=== PATIENT | male | born 1970 | race Caucasian/White ===

== ENCOUNTER 2019-08-26 16:11 | Observation (INO) ==
--- NOTE | 2019-08-26 16:46 | Emergency Department Note ---
General Adult HPI - General Chief complaint: Blood Sugar Problem Stated complaint: low blood glucose levels Time Seen by Provider: 08/26/19 16:23 Source: patient Mode of arrival: ambulatory Limitations: no limitations - History of Present Illness HPI Narrative: Is a diabetic brought in for hyperglycemia. His blood sugar was 28 most recently. EMS did give him D50 and he responded. He is now awake and alert. He was off all his medications between last March and this past Monday. He saw physician and was restarted on his insulin and other medications in the last 24 hours he has had 4 episodes of blood sugars in the 20s. Also has a noticed a little swelling at times in his legs. He has a pacemaker but no history of coronary disease or heart failure. No history of liver disease. - Related Data Home Medications Medication Instructions Recorded Confirmed Atorvastatin [Lipitor] 10 mg PO HS 08/26/19 08/26/19 Cyanocobalamin (Vitamin B-12) 1,000 mcg IJ MONTHLY 08/26/19 08/26/19 [B-12 Compliance] Furosemide [Lasix] 20 mg PO DAILY 08/26/19 08/26/19 Glimepiride [Amaryl] 3 mg PO ONCE 08/26/19 08/26/19 Insulin Glargine,Hum.rec.anlog 12 unit SQ DAILY 08/26/19 08/26/19 [Lantus Solostar] Linagliptin [Tradjenta] 5 mg PO DAILY 08/26/19 08/26/19 Lisinopril/Hydrochlorothiazide 1 tab PO DAILY 08/26/19 08/26/19 [Lisinopril-Hctz 10-12.5 mg Tab] Metoprolol Succinate [Kapspargo 25 mg PO DAILY 08/26/19 08/26/19 Sprinkle] Rivaroxaban [Xarelto] 20 mg PO DAILY 08/26/19 08/26/19 amLODIPine [Norvasc] 10 mg PO DAILY 08/26/19 08/26/19 metFORMIN [Glucophage] 1,000 mg PO BIDCC 08/26/19 08/26/19 Allergies Allergy/AdvReac Type Severity Reaction Status Date / Time No Known Drug Allergies Allergy Unverified 08/26/19 16:17 Review of Systems All systems ED: reviewed and negative except as stated. Past Medical History - Past Medical History Medical history: Reports: DM Surgical history ED: Reports: pacemaker/AICD - Social History smoking status: Smokeless tobacco Physical Exam Limitations: no limitations General appearance: alert Head: atraumatic Eye: Present: normal appearance ENT: Present: normal exam Neck: Present: normal inspection Chest: Present: normal inspection Respiratory: Present: normal lung sounds bilaterally Cardiovascular: Present: regular rate, normal rhythm, normal heart sounds Abdominal: Present: soft. Absent: distention, tenderness Extremities: Present: pedal edema, pretibial edema Neurological: Present: alert Psychiatric: Present: normal affect Skin: Present: warm, dry Course Vital Signs Temperature 97.5 F 08/26/19 16:12 Pulse Rate 87 08/26/19 16:12 Respiratory Rate 18 08/26/19 16:12 Blood Pressure 165/107 08/26/19 16:12 Pulse Oximetry (%) 99 08/26/19 16:12 Temperature 97.5 F 08/26/19 16:12 Pulse Rate 93 H 08/26/19 20:16 Respiratory Rate 18 08/26/19 16:12 Blood Pressure 164/106 08/26/19 20:16 Pulse Oximetry (%) 95 08/26/19 20:16 Medical Decision Making - [facility] Narrative Medical decision making narrative: We have had the patient ER for over 4 hours and he is eaten multiple times as well as gotten D10 W. Despite that his blood sugar is not gone over 50-55 since he has been here. I discussed the case with Dr. Frazier and he will be admitted observation to the hospital. - Lab Data Lab results reviewed: Yes I reviewed the patient's lab results. Result diagrams: 08/26/19 16:39 08/26/19 16:39 Lab Results 08/26/19 08/26/19 Range/Units 16:39 16:39 WBC 12.0 H (4.50-11.00) K/mcL RBC 4.71 (4.63-6.08) M/mcL Hgb 12.5 L (13.7-17.5) g/dL Hct 40.5 (40.1-51.0) % MCV 86.0 (80.0-100.0) fL MCH 26.5 (26.0-34.0) pg MCHC 30.9 L (31.0-36.0) g/dL RDW 14.5 (11.5-14.5) % Plt Count 350 (140-440) K/mcL MPV 9.4 (7.4-10.4) fL Gran % 78.0 (38.0-78.0) % Lymph % (Auto) 15.0 L (15.5-49.0) % Island % (Auto) 5.5 (1.0-12.0) % Eos % (Auto) 0.7 (0.0-7.0) % Baso % (Auto) 0.8 (0.0-2.0) % Gran # 9.34 H (1.80-8.00) K/mcL Lymph # (Auto) 1.79 (1.50-4.80) K/mcL Island # (Auto) 0.66 (0.10-0.90) K/mcL Eos # (Auto) 0.08 (0.00-0.70) K/mcL Baso # (Auto) 0.10 (0.00-0.30) K/mcL Sodium 139 (133-145) mmol/L Potassium 4.3 (3.3-5.1) mmol/L Chloride 105 (96-108) mmol/L Carbon Dioxide 21 L (22-30) mmol/L Anion Gap 13.0 (8-16) BUN 24 H (6-20) mg/dl Creatinine 1.6 H (0.7-1.2) mg/dl GFR Calculation 51 Glucose 35 L* (70-105) mg/dL Hemoglobin A1c 7.9 H (4.0-6.0) % HGB Estim Average Glucose 180 mg/dL Calcium 8.6 (8.6-10.4) mg/dl Total Bilirubin 0.2 (0.0-1.0) mg/dL AST 43 H (0-37) U/l ALT 34 (0-40) U/l Alkaline Phosphatase 94 (39-117) U/L Total Protein 6.6 (5.9-8.4) gm/dL Albumin 2.9 L (3.2-5.2) gm/dL Globulin 3.7 (2.2-3.7) gm/dL Albumin/Globulin Ratio 0.8 L (1.0-2.3) Beta-Hydroxybutyrate 0.08 (< 0.27) mmol/L Disposition Pt seen by [facility] only: No Clinical Impression: Hypoglycemia associated with diabetes Disposition: Xfer As Outpt/Obs ([facility]) Condition: Good Referrals: Issac Squries ARNP [Primary Care Provider] - Time of Disposition: 21:21
[2019-08-26 17:07] LABS: Basophils % (Auto) 0.8 % (0.0-2.0); Eosinophils # (Auto) 0.08 K/mcL (0.00-0.70); Eosinophils % (Auto) 0.7 % (0.0-7.0); Hematocrit 40.5 % (40.1-51.0); Hemoglobin 12.5 g/dL (13.7-17.5); Lymphocytes # (Auto) 1.79 K/mcL (1.50-4.80); Mean Corpuscular HGB Conc 30.9 g/dL (31.0-36.0); Mean Platelet Volume 9.4 fL (7.4-10.4); Monocytes # (Auto) 0.66 K/mcL (0.10-0.90); Monocytes % (Auto) 5.5 % (1.0-12.0); Platelet Count 350 K/mcL (140-440); RBC 4.71 M/mcL (4.63-6.08); Red Cell Distribution Width 14.5 % (11.5-14.5)
[2019-08-26 17:30] LABS: Estimated Average Glucose(eAG) 180 mg/dL; Hemoglobin A1C 7.9 % HGB (4.0-6.0)
[2019-08-26 17:34] LABS: ALT/SGPT 34 U/l (0-40); AST/SGOT 43 U/l (0-37); Albumin 2.9 gm/dL (3.2-5.2); Albumin/Globulin Ratio 0.8 (1.0-2.3); Alkaline Phosphatase 94 U/L (39-117); Beta Hydroxybutyrate 0.08 mmol/L (< 0.27); Bilirubin,Total 0.2 mg/dL (0.0-1.0); Blood Urea Nitrogen 24 mg/dl (6-20); Calcium 8.6 mg/dl (8.6-10.4); Carbon Dioxide 21 mmol/L (22-30); Chloride 105 mmol/L (96-108); Globulin 3.7 gm/dL (2.2-3.7); Glomerular Filtration Rate 51
[2019-08-26 18:20] LABS: Glucose 35 mg/dL (70-105)
[2019-08-26] MEDS ORDERED: DEXTROSE 10 % IN WATER 1,000 ML IV ONE ×2 (18:53→23:53)
--- NOTE | 2019-08-26 21:24 | Internal Med History&Physical ---
Medical - H&P: [facility] Patient information: Note initiated : 08/26/19 at 9:23 pm Service Date, if different from initiated Date: [] Patient: Ruslan Escobar a 49 y/o M admitted on for low blood glucose levels. Chief Complaint: [] Chief complaint: low BGS History of present illness: Mr. Escobar is a 49 year old M with history of poorly controlled diabetes/ CKD stage III . He stopped taking his medication following recent move to [place] and inability to receive refills. He has not had his regular antidiabetic since March and resumed recently after he saw his primary care physician. He was restarted on Lantus 12 units/metformin/glimepiride/linagliptin and Victoza. Following couple of days reinitiation yesterday patient became very confused lethargic diaphoretic and was found with low blood sugars. EMS was summoned after experiencing multiple episodes of hypoglycemia. Patient was managed in the ER with D50 infusion followed by D10 , however blood sugar remained in mid 30s. Patient also had a diet in the ER. Due to persistent hypoglycemia hospitalist service was consulted for admission and management. Patient's last dose of medication was this morning. Patient work-up was consistent with hypoglycemia/creatinine 1.6. Baseline creatinine not available however patient endorsed to chronic disease. He is hypertensive with systolics around 160s. Denies chest pain, vision changes, lightheadedness dizziness but endorses to confusion, diaphoresis and lethargy. Denies fever chills, diarrhea Review of systems 10 point review systems performed and negative except one discussed above Medical - H&P: PMH Medical history: DM type II Hypertension Atrial fibrillation Anticoagulation for CVA prophylaxis Pacemaker Pertinent family history: Nonrelevant Social history: and lives with Occasional alcohol No smoking Medical - H&P: Meds Home Medications Medication Instructions Recorded Confirmed Type Atorvastatin [Lipitor] 10 mg PO HS 08/26/19 08/26/19 History Cyanocobalamin (Vitamin B-12) 1,000 mcg IJ MONTHLY 08/26/19 08/26/19 History [B-12 Compliance] Furosemide [Lasix] 20 mg PO DAILY 08/26/19 08/26/19 History Glimepiride [Amaryl] 3 mg PO ONCE 08/26/19 08/26/19 History Insulin Glargine,Hum.rec.anlog 12 unit SQ DAILY 08/26/19 08/26/19 History [Lantus Solostar] Linagliptin [Tradjenta] 5 mg PO DAILY 08/26/19 08/26/19 History Lisinopril/Hydrochlorothiazide 1 tab PO DAILY 08/26/19 08/26/19 History [Lisinopril-Hctz 10-12.5 mg Tab] Metoprolol Succinate [Kapspargo 25 mg PO DAILY 08/26/19 08/26/19 History Sprinkle] Rivaroxaban [Xarelto] 20 mg PO DAILY 08/26/19 08/26/19 History amLODIPine [Norvasc] 10 mg PO DAILY 08/26/19 08/26/19 History metFORMIN [Glucophage] 1,000 mg PO BIDCC 08/26/19 08/26/19 History Allergies Allergy/AdvReac Type Severity Reaction Status Date / Time No Known Drug Allergies Allergy Unverified 08/26/19 16:17 Medical - H&P: Exam - Constitutional Vitals: Temp Pulse Resp BP Pulse Ox 97.5 F 93 H 18 164/106 95 08/26/19 16:12 08/26/19 20:16 08/26/19 16:12 08/26/19 20:16 08/26/19 20:16 General appearance: average body habitus, no acute distress Exam: Alert and respond to commands Head normocephalic Oral cavity dry No ear nose discharge Eye movement symmetrical Neck lymphadenopathy S1-S2 irregular Diminished breath sounds bases, pacemaker left anterior chest Lower extremity no cyanosis clubbing no joint swelling Skin no suspicious lesion Psych alert cooperative Neuro nonfocal Medical - H&P: Reslt - Labs CBC & Chem 7: 08/27/19 05:00 08/27/19 05:00 Labs: Short CBC 08/26/19 Range/Units 16:39 WBC 12.0 H (4.50-11.00) K/mcL Hgb 12.5 L (13.7-17.5) g/dL Hct 40.5 (40.1-51.0) % Plt Count 350 (140-440) K/mcL BMP 08/26/19 16:39 Sodium 139 Potassium 4.3 Chloride 105 Carbon Dioxide 21 L BUN 24 H Creatinine 1.6 H Glucose 35 L* Calcium 8.6 Liver Function 01/20/20 Range/Units 16:39 Total Bilirubin 0.2 (0.0-1.0) mg/dL AST 43 H (0-37) U/l ALT 34 (0-40) U/l Alkaline Phosphatase 94 (39-117) U/L Albumin 2.9 L (3.2-5.2) gm/dL Medical - H&P: A/P (1) Hypoglycemia associated with diabetes Current visit: Yes Status: Acute * Acute hypoglycemia secondary to over medications. Continue D5 drip/D50 as needed/glucagon. Hold anti-diabetics * Acute on chronic kidney disease. Unclear baseline. Continue monitoring. Crystalloids. Avoid nephrotoxins * History of hypertension restart home medications including amlodipine/GLORIA inhibitor * History of atrial fibrillation-rate controlled * Anticoagulation continue Xarelto * Hyperlipidemia continue statin * Prophylaxis on Xarelto * Full code Plan * Observation admit * D10 drip/ D50 as needed * Hold antidiabetics * Restart home medications * Continue close monitoring.
[2019-08-26] MEDS ORDERED: DEXTROSE 5%-1/2NS W/10MEQ KCL 1,000 ML IV SCH ×2 (21:30→22:46)
[2019-08-26] MEDS ORDERED: POLYETHYLENE GLYCOL 3350 17 GM PACKET PO PRN (22:46)
[2019-08-26] MEDS ORDERED: MAGNESIUM SULFATE 2 GM/50 ML BAG IV PRN (22:46)
[2019-08-26] MEDS ORDERED: ONDANSETRON 4 MG/2 ML VIAL IV PRN (22:46)
[2019-08-26] MEDS ORDERED: POTASSIUM CHLORIDE 20 MEQ PACKET PO PRN (22:46)
[2019-08-26] MEDS ORDERED: ACETAMINOPHEN 650 MG/65 ML BOTTLE IV PRN (22:46)
[2019-08-26] MEDS ORDERED: ACETAMINOPHEN 325 MG TABLET PO PRN (22:46)
[2019-08-26] MEDS ORDERED: MELATONIN 3 MG TABLET PO PRN (22:46)
[2019-08-26] MEDS ORDERED: BISACODYL 10 MG SUPP.RECT PR PRN (22:46)
[2019-08-26] MEDS ORDERED: ONDANSETRON 4 MG ODT TABLET SL PRN (22:46)
[2019-08-26] MEDS: 0.9 % SODIUM CHLORIDE 10 ML SYRINGE IV SCH (22:53)
--- NOTE | 2019-08-26 22:57 | Internal Med History&Physical ---
Medical - H&P: HPI Patient information: Note initiated : 08/26/19 at 10:57 pm Service Date, if different from initiated Date: [] Patient: Ruslan Escobar a 49 y/o M admitted on for low blood glucose levels. Chief Complaint: [] History of present illness: Mr. Escobar is a 49 year old M Medical - H&P: Meds Home Medications Medication Instructions Recorded Confirmed Type Atorvastatin [Lipitor] 10 mg PO HS 08/26/19 08/26/19 History Cyanocobalamin (Vitamin B-12) 1,000 mcg IJ MONTHLY 08/26/19 08/26/19 History [B-12 Compliance] Furosemide [Lasix] 20 mg PO DAILY 08/26/19 08/26/19 History Glimepiride [Amaryl] 3 mg PO ONCE 08/26/19 08/26/19 History Insulin Glargine,Hum.rec.anlog 12 unit SQ DAILY 08/26/19 08/26/19 History [Lantus Solostar] Linagliptin [Tradjenta] 5 mg PO DAILY 08/26/19 08/26/19 History Lisinopril/Hydrochlorothiazide 1 tab PO DAILY 08/26/19 08/26/19 History [Lisinopril-Hctz 10-12.5 mg Tab] Metoprolol Succinate [Kapspargo 25 mg PO DAILY 08/26/19 08/26/19 History Sprinkle] Rivaroxaban [Xarelto] 20 mg PO DAILY 08/26/19 08/26/19 History amLODIPine [Norvasc] 10 mg PO DAILY 08/26/19 08/26/19 History metFORMIN [Glucophage] 1,000 mg PO BIDCC 08/26/19 08/26/19 History Allergies Allergy/AdvReac Type Severity Reaction Status Date / Time No Known Drug Allergies Allergy Unverified 08/26/19 16:17 Medical - H&P: Exam - Constitutional Vitals: Temp Pulse Resp BP Pulse Ox 97.5 F 94 H 18 163/105 95 08/26/19 22:30 08/26/19 22:30 08/26/19 22:30 08/26/19 22:30 08/26/19 22:30 Medical - H&P: Reslt - Labs CBC & Chem 7: 08/26/19 16:39 08/26/19 16:39 Labs: Short CBC 08/26/19 Range/Units 16:39 WBC 12.0 H (4.50-11.00) K/mcL Hgb 12.5 L (13.7-17.5) g/dL Hct 40.5 (40.1-51.0) % Plt Count 350 (140-440) K/mcL BMP 08/26/19 16:39 Sodium 139 Potassium 4.3 Chloride 105 Carbon Dioxide 21 L BUN 24 H Creatinine 1.6 H Glucose 35 L* Calcium 8.6 Liver Function 08/26/19 Range/Units 16:39 Total Bilirubin 0.2 (0.0-1.0) mg/dL AST 43 H (0-37) U/l ALT 34 (0-40) U/l Alkaline Phosphatase 94 (39-117) U/L Albumin 2.9 L (3.2-5.2) gm/dL Medical - H&P: A/P (1) Hypoglycemia associated with diabetes Current visit: Yes Status: Acute
[2019-08-27] MEDS ORDERED: DEXTROSE 50% 50 ML VIAL IV ONE ×2 (02:21→05:44)
[2019-08-27] MEDS: DEXTROSE 50% 50 ML VIAL IV PRN ×2 (02:29→05:49)
[2019-08-27] MEDS: DEXTROSE 10 % IN WATER 1,000 ML IV SCH ×5 (04:19→20:34)
[2019-08-27] MEDS: 0.9 % SODIUM CHLORIDE 10 ML SYRINGE IV SCH ×2 (05:46→14:18)
[2019-08-27 06:45] LABS: Hematocrit 35.8 % (40.1-51.0); Mean Cell Volume 85.2 fL (80.0-100.0); Mean Corpuscular HGB Conc 30.7 g/dL (31.0-36.0); Platelet Count 319 K/mcL (140-440); Red Cell Distribution Width 14.6 % (11.5-14.5); WBC 10.2 K/mcL (4.50-11.00)
[2019-08-27 07:20] LABS: ALT/SGPT 27 U/l (0-40); AST/SGOT 31 U/l (0-37); Albumin 2.5 gm/dL (3.2-5.2); Albumin/Globulin Ratio 0.8 (1.0-2.3); Alkaline Phosphatase 79 U/L (39-117); Bilirubin,Direct < 0.2 mg/dL (0.0-0.3); Bilirubin,Total 0.2 mg/dL (0.0-1.0); Blood Urea Nitrogen 25 mg/dl (6-20); Calcium 8.3 mg/dl (8.6-10.4); Carbon Dioxide 21 mmol/L (22-30); Chloride 104 mmol/L (96-108); Globulin 3.3 gm/dL (2.2-3.7); Glomerular Filtration Rate 41; Glucose 43 mg/dL (70-105); Lactate Dehydrogenase 270 U/L (94-250); Phosphorous 3.3 mg/dL (2.7-4.5); Triglycerides 67 mg/dl (<150); Uric Acid 6.2 mg/dL (2.5-8.0)
[2019-08-27] MEDS: MULTIVIT,THER IRON,CA,FA & MIN 1 TABLET PO SCH (08:17)
[2019-08-27] MEDS: DOCUSATE SODIUM 100 MG CAPSULE PO SCH ×2 (08:17→20:13)
[2019-08-27 08:33] LABS: Eosinophils % (Manual) 2 % (0-7); Lymphocytes % 22 % (15-49); Monocytes % (Manual) 8 % (1-12); Platelet Estimate NORMAL (NORMAL); RBC Morphology NORMAL (NORMAL); Segmented Neutrophils % 68 % (38-78)
--- NOTE | 2019-08-27 17:34 | Internal Med Progress Note ---
Medical - PN: Subj Patient information: Note initiated : 08/27/19 at 5:31 pm Service Date, if different from initiated Date: [] Patient: Ruslan Escobar a 49 y/o M admitted on 08/26/19 for low blood glucose levels. Chief Complaint: [] Interval history: Mr. Escobar is a 49 year old M with history of poorly controlled diabetes/ CKD stage III . He stopped taking his medication following recent move to [place] and inability to receive refills. He has not had his regular antidiabetic since March and resumed recently after he saw his primary care physician. He was restarted on Lantus 12 units/metformin/glimepiride/linagliptin and Victoza. Following couple of days reinitiation yesterday patient became very confused lethargic diaphoretic and was found with low blood sugars. EMS was summoned after experiencing multiple episodes of hypoglycemia. Patient was managed in the ER with D50 infusion followed by D10 , however blood sugar remained in mid 30s. Patient also had a diet in the ER. Due to persistent hypoglycemia hospitalist service was consulted for admission and management. Patient's last dose of medication was this morning. Patient work-up was consistent with hypoglycemia/creatinine 1.6. Baseline creatinine not available however patient endorsed to chronic disease. He is hypertensive with systolics around 160s. Denies chest pain, vision changes, lightheadedness dizziness but endorses to confusion, diaphoresis and lethargy. Denies fever chills, diarrhea 08/27-patient doing well. Blood sugars remained low 60s to 100 throughout the day on D10 drip/diabetic diet. Discussed with patient and his the need to stop Lantus/ sulfonylurea to prevent hypoglycemia. Patient will need to re- titrate his medications in the setting of profound persistent hypoglycemia and prevent future episodes. No overnight fever chills. Ambulating. No concerns per staff - Constitutional Vitals: Vital Signs Temp Pulse Resp BP Pulse Ox 98.4 F 84 16 140/90 98 08/27/19 16:00 08/27/19 16:00 08/27/19 16:00 08/27/19 16:00 08/27/19 16:00 Period Temp Pulse Resp BP Sys/Britton Pulse Ox Last 24 Hr 97.5 F-99.1 F 58-94 - 134-165/89-108 91-99 Intake and Output 08/27/19 08/27/19 08/27/19 05:59 13:59 21:59 Intake Total 1000 1300 923 Balance 1000 1300 923 Weight 215 lb Intake & Output: Intake & Output 08/27/19 08/27/19 08/27/19 05:59 13:59 21:59 Intake Total 1000 1300 923 Balance 1000 1300 923 Weight 215 lb Intake: IV 1000 1000 723 Dextrose 10%-Water IV Solution 1000 1000 723 1,000 ml @ 200 mls/hr IV .Q5H [facility] Rx#:[id number] Oral 300 200 Other: Meal Breakfast Percent of Meal Consumed 100% # Voids 1 2 General appearance: no acute distress Exam: Alert oriented nonlabored breathing No anxiety Nondistended abdomen Paced rhythm Medical - PN: Obj Da - Labs CBC & Chem 7: 08/27/19 05:00 08/27/19 05:00 Labs: Abnormal Lab Results 08/27/19 08/27/19 08/26/19 05:00 05:00 16:39 WBC RBC 4.20 L Hgb 11.0 L Hct 35.8 L MCHC 30.7 L RDW 14.6 H Lymph % (Auto) Gran # Carbon Dioxide 21 L 21 L BUN 25 H 24 H Creatinine 1.9 H 1.6 H Glucose 43 L 35 L* Hemoglobin A1c 7.9 H Calcium 8.3 L GGT 70 H AST 43 H Lactate Dehydrogenase 270 H Total Protein 5.8 L Albumin 2.5 L 2.9 L Albumin/Globulin Ratio 0.8 L 0.8 L 08/26/19 16:39 WBC 12.0 H RBC Hgb 12.5 L Hct MCHC 30.9 L RDW Lymph % (Auto) 15.0 L Gran # 9.34 H Carbon Dioxide BUN Creatinine Glucose Hemoglobin A1c Calcium GGT AST Lactate Dehydrogenase Total Protein Albumin Albumin/Globulin Ratio Meds: Medications Acetaminophen (Tylenol) 650 mg PO Q4-6HP PRN; Protocol PRN Reason: Per Pain Protocol/Fever > 101 Bisacodyl (Dulcolax) 10 mg SD Q2-3DAYS PRN PRN Reason: Constipation Dextrose (Dextrose 50%) 25 ml IV UD PRN PRN Reason: Hypoglycemia Last Admin: 08/27/19 05:49 Dose: 25 ml Documented by: Diagnostic Test (Pha) (Accu-Chek) 1 each FS Q2 [facility] Last Admin: 08/27/19 15:54 Dose: 1 each Documented by: Docusate Sodium (Colace) 100 mg PO BID [facility] Last Admin: 08/27/19 08:17 Dose: 100 mg Documented by: Acetaminophen (Ofirmev) 650 mg in 65 mls @ 130 mls/hr IV Q6HP PRN; Protocol PRN Reason: Per Pain Protocol/Fever > 101 Magnesium Sulfate (Magnesium Sulfate) 2 gm in 50 mls @ 50 mls/hr IV UD PRN PRN Reason: MG = or < 1.7 Dextrose (Dextrose 10%-Water Iv Solution) 1,000 mls @ 200 mls/hr IV .Q5H [facility] Last Admin: 08/27/19 15:55 Dose: Not Given Documented by: Iron Carb/Multivit/Account Executive/Folic Acid (Multivitamin W/Minerals) 1 tab PO DAILY [facility] Last Admin: 08/27/19 08:17 Dose: 1 tab Documented by: Melatonin (Melatonin 3mg Tablet) 3 mg PO HSP PRN PRN Reason: Insomnia Ondansetron HCl (Zofran Odt) 4 mg SL Q4-6HP PRN; Protocol PRN Reason: Nausea And Vomiting Ondansetron HCl (Zofran) 4 mg IV Q4-6HP PRN; Protocol PRN Reason: Nausea And Vomiting Polyethylene Glycol (Miralax) 17 gm PO DAILYP PRN PRN Reason: Constipation Potassium Chloride (Klor-Con) 40 meq PO DAILYP PRN PRN Reason: K+ < 3.5 Senna/Docusate Sodium (Senna Plus Tablet) 1 tab PO [facility] Sodium Chloride (Saline Flush) 10 ml IV Q8 [facility] Last Admin: 08/27/19 14:18 Dose: Not Given Documented by: Medical - PN: A/P - Time Spent With Patient Total time spent is greater than 50% in coordination of care (as documented) at patient's floor/unit and/or counseling patient: 25 - 35 minutes (1) Hypoglycemia associated with diabetes Status: Acute Assessment and plan: * Hypoglycemia secondary to medications. Wean D10 drip. Continued diabetic diet. Hold sulfonylurea/insulin * Acute on chronic kidney renal failure, creatinine up from 1.6-1.9 * History of hypertension continue home medications including amlodipine/GLORIA inhibitor * History of atrial fibrillation-rate controlled * Anticoagulation for CVA prophylaxis continue Xarelto * Hyperlipidemia continue statin * Full code Plan * Continue monitoring blood sugars * D10 drip/ D50 as needed * Hold antidiabetics * Monitor renal function and avoid nephrotoxins * Schedule outpatient nephrology follow-up for chronic kidney disease management * Pre-existing medical condition management home meds Current Visit: Yes Medical - PN: Qual - VTE Deep Vein Thrombosis/Pulmonary Embolism Present on Admission: No
[2019-08-27] MEDS ORDERED: SENNOSIDES/DOCUSATE SODIUM 1 TAB TABLET PO SCH (21:00)
[2019-08-27] MEDS ORDERED: ATORVASTATIN 20 MG TABLET PO SCH (21:00)
[2019-08-28] MEDS: DEXTROSE 10 % IN WATER 1,000 ML IV SCH ×2 (01:02→03:42)
[2019-08-28] MEDS: 0.9 % SODIUM CHLORIDE 10 ML SYRINGE IV SCH ×2 (01:02→06:02)
[2019-08-28 07:32] LABS: Hematocrit 35.1 % (40.1-51.0); Mean Corpuscular HGB Conc 31.3 g/dL (31.0-36.0); Mean Platelet Volume 10.1 fL (7.4-10.4); Platelet Count 296 K/mcL (140-440); RBC 4.13 M/mcL (4.63-6.08); Red Cell Distribution Width 14.5 % (11.5-14.5); WBC 8.9 K/mcL (4.50-11.00)
[2019-08-28 07:41] LABS: ALT/SGPT 25 U/l (0-40); AST/SGOT 27 U/l (0-37); Albumin 2.3 gm/dL (3.2-5.2); Albumin/Globulin Ratio 0.7 (1.0-2.3); Alkaline Phosphatase 77 U/L (39-117); Bilirubin,Direct < 0.2 mg/dL (0.0-0.3); Bilirubin,Total 0.2 mg/dL (0.0-1.0); Blood Urea Nitrogen 28 mg/dl (6-20); Calcium 8.3 mg/dl (8.6-10.4); Carbon Dioxide 21 mmol/L (22-30); Chloride 104 mmol/L (96-108); Globulin 3.2 gm/dL (2.2-3.7); Glomerular Filtration Rate 44; Glucose 101 mg/dL (70-105); Lactate Dehydrogenase 260 U/L (94-250); Phosphorous 3.9 mg/dL (2.7-4.5); Triglycerides 107 mg/dl (<150); Uric Acid 6.5 mg/dL (2.5-8.0)
[2019-08-28 08:09] LABS: Basophils % (Manual) 1 % (0-2); Eosinophils % (Manual) 3 % (0-7); Lymphocytes % 31 % (15-49); Monocytes % (Manual) 4 % (1-12); Platelet Estimate NORMAL (NORMAL); RBC Morphology NORMAL (NORMAL); Segmented Neutrophils % 61 % (38-78)
[2019-08-28] MEDS: DOCUSATE SODIUM 100 MG CAPSULE PO SCH (08:26)
[2019-08-28] MEDS: MULTIVIT,THER IRON,CA,FA & MIN 1 TABLET PO SCH (08:26)
[2019-08-28] MEDS ORDERED: NON FORMULARY MEDICATION 1 DOSE MISCELL (Cyanocobalamin (Vitamin B-12) [B-12 Compliance] 1 IJ SCH (09:00)
[2019-08-28] MEDS ORDERED: amLODIPine 10 MG TABLET PO SCH (09:00)
[2019-08-28] MEDS ORDERED: FUROSEMIDE 20 MG TABLET PO SCH (09:00)
[2019-08-28] MEDS ORDERED: METOPROLOL SUCCINATE 25 MG TAB.XL.24H PO SCH (09:00)
--- NOTE | 2019-08-28 09:36 | Discharge Summary ---
Medical - DS: Prov Patient information: Note initiated : 08/28/19 at 9:34 am Service Date, if different from initiated Date: [] Patient: Ruslan Escobar 49 y/o M admitted on 08/26/19 for low blood glucose levels. Chief Complaint: [] Date of admission: 08/26/19 22:33 Discharge date: 08/28/19 Primary care physician: STEFANO Jimenez Consults: 08/26/19 Consult to Physician [CONS] Stat Comment: Consulting Provider: Noel Banks Reason For Exam: Physician to Consult Medical - DS: Meds - Discharge Medications Active and Home Medications: Home Medications Atorvastatin [Lipitor] 10 mg PO HS 08/26/19 [History Confirmed 08/26/19 Last Taken Unknown] Cyanocobalamin (Vitamin B-12) [B-12 Compliance] 1,000 mcg IJ MONTHLY 08/26/19 [History Confirmed 08/26/19 Last Taken Unknown] Furosemide [Lasix] 20 mg PO DAILY 08/26/19 [History Confirmed 08/26/19 Last Taken Unknown] Glimepiride [Amaryl] 3 mg PO ONCE 08/26/19 [History Confirmed 08/26/19 Last Taken Unknown] Insulin Glargine,Hum.rec.anlog [Lantus Solostar] 12 unit SQ DAILY 08/26/19 [History Confirmed 08/26/19 Last Taken Unknown] Linagliptin [Tradjenta] 5 mg PO DAILY 08/26/19 [History Confirmed 08/26/19 Last Taken Unknown] Lisinopril/Hydrochlorothiazide [Lisinopril-Hctz 10-12.5 mg Tab] 1 tab PO DAILY 08/26/19 [History Confirmed 08/26/19 Last Taken Unknown] Metoprolol Succinate [Kapspargo Sprinkle] 25 mg PO DAILY 08/26/19 [History Confirmed 08/26/19 Last Taken Unknown] Rivaroxaban [Xarelto] 20 mg PO DAILY 08/26/19 [History Confirmed 08/26/19 Last Taken Unknown] amLODIPine [Norvasc] 10 mg PO DAILY 08/26/19 [History Confirmed 08/26/19 Last Taken Unknown] metFORMIN [Glucophage] 1,000 mg PO BIDCC 08/26/19 [History Confirmed 08/26/19 Last Taken Unknown] Medical - DS: Hosp Hospital Course: Discharge diagnosis * Hypoglycemia secondary to medications. Off diabetic medication/off insulin drip. Blood sugars at goal. Discharging home with advised to follow primary care physician and diabetic special education coordinator. Continue twice daily Accu- Cheks and restart metformin once blood sugars around 150 and gradually restart prior medication as per primary care physician recommendations * Acute on chronic kidney renal failure, creatinine stable around 1.8 likely baseline. Recommend follow-up [facility] as outpatient * History of hypertension continue home medications including amlodipine/GLORIA inhibitor * History of atrial fibrillation-rate controlled * Anticoagulation for CVA prophylaxis continue Xarelto * Hyperlipidemia continue statin Brief hospital course Mr. Escobar is a 49 year old M with history of poorly controlled diabetes/ CKD stage III . He stopped taking his medication following recent move to [place] and inability to receive refills. He has not had his regular antidiabetic since March and resumed recently after he saw his primary care physician. He was restarted on Lantus 12 units/metformin/glimepiride/linagliptin and Victoza. Following couple of days reinitiation yesterday patient became very confused lethargic diaphoretic and was found with low blood sugars. EMS was summoned after experiencing multiple episodes of hypoglycemia. Patient was managed in the ER with D50 infusion followed by D10 , however blood sugar remained in mid 30s. Patient also had a diet in the ER. Due to persistent hypoglycemia hospitalist service was consulted for admission and management. Patient's last dose of medication was this morning. Patient work-up was consistent with hypoglycemia/creatinine 1.6. Baseline creatinine not available however patient endorsed to chronic disease. He is hypertensive with systolics around 160s. Denies chest pain, vision changes, lightheadedness dizziness but endorses to confusion, diaphoresis and lethargy. Denies fever chills, diarrhea 08/27-patient doing well. Blood sugars remained low 60s to 100 throughout the day on D10 drip/diabetic diet. Discussed with patient and his the need to stop Lantus/ sulfonylurea to prevent hypoglycemia. Patient will need to re- titrate his medications in the setting of profound persistent hypoglycemia and prevent future episodes. No overnight fever chills. Ambulating. No concerns per staff 08/28-patient doing well. Blood sugars around 100 off antidiabetics. Continue diabetic diet/diabetic education. Hold all medications until follow-up primary care physician. Twice daily Accu-Cheks and start with metformin once blood sugar around 150s. Discharge diagnosis: . - Time Spent with Patient Total time spent providing and/or coordinating discharge services: Greater than 30 minutes Medical - DS: Exam - Constitutional Vitals: Vital Signs Temp Pulse Resp BP Pulse Ox 08/28/19 08:00 98 F 86 16 140/96 96 08/28/19 06:00 84 12 131/92 96 08/28/19 04:00 100.1 F H 84 16 131/85 98 08/28/19 02:00 86 12 148/104 98 08/27/19 23:37 97.8 F 84 14 146/106 99 08/27/19 22:00 92 H 16 140/98 99 08/27/19 20:00 97.6 F 87 14 139/106 98 08/27/19 17:33 98.4 F 84 16 98 08/27/19 16:00 98.4 F 84 16 140/90 98 08/27/19 14:00 98.0 F 87 16 140/96 98 08/27/19 12:00 98.0 F 87 16 98 08/27/19 10:00 97.6 F 92 H 16 146/89 97 Intake and Output 08/27/19 08/28/19 08/28/19 21:59 05:59 13:59 Intake Total 1123 200 Balance 1123 200 Intake: IV 723 Dextrose 10%-Water IV Solution 723 1,000 ml @ 200 mls/hr IV .Q5H [facility] Rx#:[id number] Oral 400 200 Other: Meal Snack Percent of Meal Consumed 100% Feeding Ability Independent Urine Odor Normal Normal # Voids 1 1 Weight 230 lb 9.6 oz Medical - DS: Data Labs on day of discharge: Labs from last 24 hours 08/28/19 08/28/19 05:00 05:00 WBC 8.9 RBC 4.13 L Hgb 11.0 L Hct 35.1 L MCV 85.0 MCH 26.6 MCHC 31.3 RDW 14.5 Plt Count 296 MPV 10.1 Total Counted 100 Seg Neutrophils % 61 Band Neutrophils % Not Reportable Lymphocytes % 31 Monocytes % (Manual) 4 Eosinophils % (Manual) 3 Basophils % (Manual) 1 Platelet Estimate Normal RBC Morphology Normal Sodium 136 Potassium 4.7 Chloride 104 Carbon Dioxide 21 L Anion Gap 11.0 BUN 28 H Creatinine 1.8 H GFR Calculation 44 Glucose 101 Uric Acid 6.5 Calcium 8.3 L Phosphorus 3.9 Magnesium 1.8 Total Bilirubin 0.2 Direct Bilirubin < 0.2 GGT 73 H AST 27 ALT 25 Alkaline Phosphatase 77 Lactate Dehydrogenase 260 H Total Protein 5.5 L Albumin 2.3 L Globulin 3.2 Albumin/Globulin Ratio 0.7 L Triglycerides 107 Medical - DS: A/P - Patient/Caregiver Discharge Instructions Activity: increase activity as tolerated Diet: Consistent Carbohydrate Additional Instructions: Follow-up PCP in 5 days Follow-up diabetic special education coordinator Recommend nephrology follow-up in 2 to 4 weeks for evaluation of chronic kidney disease Twice daily Accu-Cheks hold all antidiabetic medications. Restart metformin once fasting blood sugar over 140 Daily weights measurements and take additional 40 mg Lasix for 3 days if weight gain over 4 pounds over baseline or worsening SOB and call primary care physician if inadequate response to Lasix High protein calorie supplements Continue CC diet and activity as advised Discussed importance of medication adherence Please review medication list with patient prior to discharge Please schedule follow-up with PCP/Providers prior to discharge and provide printouts - Problem Maintenance (1) Hypoglycemia associated with diabetes Status: Acute - Follow up Plan Follow up with: Issac Squires ARNP [Primary Care Provider] - Disposition: Home, Self-Care Prognosis: Good Rehab Potential: Fair I certify that the patient requires SNF services: No Overall status at discharge: patient is progressing back to baseline Medical - DS: Qual - VTE Deep Vein Thrombosis/Pulmonary Embolism Present on Admission: No
[2019-08-28] MEDS ORDERED: RIVAROXABAN 20 MG TABLET PO SCH (17:30)
== END 2019-08-28 11:27 | disposition home or self-care (01) ==
LOC: ICU 16:11 → ED 16:11 → ICU 22:30
PROVIDERS: ADMIT Internal Medicine; ATTEND Internal Medicine